=== PATIENT | female | born 1950 | race Caucasian/White ===

== ENCOUNTER → 2016-08-10 | Outpatient (CLI) | payer OTHER ==
[~2016-08-10] MED LIST: CALC-140 PO; FISH1CAP15 PO; FOLI0.8T PO; LEVO100T PO; LOVA20TA2 PO; PRAM0.12 GT; RISE150T PO
--- NOTE | 2016-08-11 09:40 | Diagnostic Imaging Report ---
INDICATION: Screening mammogram. COMPARISON: 06/18/2015. TECHNIQUE: Digital screening mammography was obtained with CAD. FINDINGS: Scattered fibroglandular densities are present bilaterally. There is no mass or suspicious calcification. IMPRESSION: Stable screening mammogram. No malignancy. ACR BI-RADS Category 1: Negative. Result letter will be mailed to the patient. Note: At least 10% of breast cancer is not imaged by mammography. Dictated by: Dictated on workstation # [id number]
== END ==
LOC: RAD 08:50
PROVIDERS: ATTEND Family Medicine
DX: Z12.31 Encounter for screening mammogram for malignant neoplasm of breast (principal)